=== PATIENT | male | born 1985 | race Caucasian/White ===

== ENCOUNTER 2016-05-30 19:07 | Emergency (ER) | payer OTHER ==
[~2016-05-30] VITALS: Ht 177.8 cm; Wt 74.8 kg
[2016-05-30] MEDS ORDERED: AMBI10TA PO (19:26)
[2016-05-30] MEDS ORDERED: MINO0.1C PO (19:26)
[2016-05-30] MEDS ORDERED: LEXA1TAB2 PO (19:26)
[2016-05-30] MEDS ORDERED: VITA100037 PO (19:26)
[2016-05-30] MEDS: KETOROLAC 30 MG/ML VIAL (J1885) IM ONE (21:30)
[2016-05-30] MEDS ORDERED: DICL75TA PO (22:08)
[2016-05-30] MEDS ORDERED: CYCL10TA PO (22:08)
[2016-05-30 22:12] VITALS: BP 116/65
== END 2016-05-30 22:22 | disposition home or self-care (01) ==
LOC: M ED 19:58
DX: S13.4XXA Sprain of ligaments of cervical spine, initial encounter (principal); X58.XXXA Exposure to other specified factors, initial encounter; Y92.89 Other specified places as the place of occurrence of the external cause; Y93.89 Activity, other specified; Y99.8 Other external cause status; F17.210 Nicotine dependence, cigarettes, uncomplicated; Z79.899 Other long term (current) drug therapy

== ENCOUNTER → 2016-06-01 | Outpatient (CLI) | payer OTHER ==
[~2016-06-01] MED LIST: AMBI10TA PO; CYCL10TA PO; DICL75TA PO; LEXA1TAB2 PO; MINO0.1C PO; VITA100037 PO
--- NOTE | 2016-06-01 17:21 | REP ---
Clinical: Cervicalgia. Comparison: 08/28/2015. Technique: AP, swimmers, open mouth and lateral views of the cervical spine. Findings: Straightening of normal lordosis is stable. Vertebral bodies and disc spaces are intact and essentially normal for age. No acute fracture / compression injury or subluxation. Spinous processes are intact. Open mouth view demonstrates normal C1-C2 articulation and odontoid process. Impression: Stable cervical spine series compared to 2016. Signed by Jesus Espitia MD 06/01/2016 05:13 P
== END ==
LOC: M RAD 16:37
PROVIDERS: ATTEND Physician Assistant Medical
DX: M54.2 Cervicalgia (principal)

== ENCOUNTER 2017-03-03 22:59 | Emergency (ER) | payer OTHER ==
[~2017-03-03] VITALS: Ht 177.8 cm; Wt 74.5 kg
[~2017-03-03 22:59] MED LIST changes: -VITA100037 PO; +VITA100067 PO
[2017-03-03] MEDS ORDERED: MELO7.5T7 PO (23:18)
[2017-03-03] MEDS ORDERED: VARE1TA PO (23:18)
[2017-03-03] MEDS ORDERED: HYDR50TA70 PO (23:18)
[2017-03-03] MEDS ORDERED: diphenhydrAMINE INJ 50MG/ML VIAL (J1200) IV STA (23:31)
[2017-03-03] MEDS ORDERED: METOCLOPRAMIDE INJ 10MG/2ML VIAL (J2765) IV ONE (23:45)
[2017-03-03] MEDS ORDERED: NS 1,000 ML IV ONE (23:45)
[2017-03-03] MEDS ORDERED: KETOROLAC 30 MG/ML VIAL (J1885) IV ONE (23:45)
[2017-03-04 00:23] VITALS: BP 123/76
== END 2017-03-04 00:36 | disposition home or self-care (01) ==
LOC: M ED 22:59
DX: G44.209 Tension-type headache, unspecified, not intractable (principal); Z72.0 Tobacco use
CPT/HCPCS: 96361; 96374; 96375; 99284; J1200; J1885; J2765

== ENCOUNTER → 2017-03-21 | Outpatient (CLI) | payer OTHER ==
[2017-03-21 20:44] LABS: HEMATOCRIT 44.3 % (42.0-52.0); HEMOGLOBIN 15.1 g/dl (14.0-18.0); MEAN CORPUSCULAR HEMOGLOBIN 28.9 pg (27.0-33.0); MEAN CORPUSCULAR HGB CONC 34.1 g/dl (32.0-36.5); MEAN CORPUSCULAR VOLUME 84.7 fl (80.0-96.0); PLATELET COUNT, AUTOMATED 309 10^3/uL (150-450); RED BLOOD COUNT 5.23 10^6/uL (4.30-6.10); RED CELL DISTRIBUTION WIDTH 12.6 % (11.5-14.5); WHITE BLOOD COUNT 10.4 10^3/uL (4.0-10.0)
[2017-03-21 20:58] LABS: ALBUMIN/GLOBULIN RATIO 1.14 (1.00-1.93); ALKALINE PHOSPHATASE 90 U/L (45-117); ALT/SGPT 53 U/L (12-78); ANION GAP 6 MEQ/L (8-16); AST/SGOT 29 U/L (7-37); BILIRUBIN,TOTAL 0.3 MG/DL (0.2-1.0); BLOOD UREA NITROGEN 8 MG/DL (7-18); CALCIUM LEVEL 9.2 MG/DL (8.5-10.1); CARBON DIOXIDE LEVEL 32 MEQ/L (21-32); CHLORIDE LEVEL 101 MEQ/L (98-107); CREATININE FOR GFR 0.77 MG/DL (0.70-1.30); FREE THYROXINE INDEX 3.6 % (1.4-3.8); GLOMERULAR FILTRATION RATE > 60.0 (>60); GLUCOSE, FASTING 78 MG/DL (70-105); POTASSIUM SERUM 4.9 MEQ/L (3.5-5.1); SODIUM LEVEL 139 MEQ/L (136-145); T UPTAKE 34 % (33-40); THYROID STIMULATING HORMONE 0.801 uIU/ML (0.358-3.740); THYROXINE (T4) 10.7 UG/DL (4.5-12.0); TOTAL PROTEIN 7.5 GM/DL (6.4-8.2)
[2017-03-21 21:03] LABS: TOTAL 25(OH) VITAMIN D 45.2 NG/ML (30.0-100.0)
== END ==
LOC: M LAB 17:47
DX: F33.9 Major depressive disorder, recurrent, unspecified (principal)
CPT/HCPCS: 84443

== ENCOUNTER 2017-12-30 13:23 | Emergency (ER) | payer OTHER | END 2017-12-30 15:30 | disposition home or self-care (01) | LOC: M ED 13:23 | DX: R59.1 Generalized enlarged lymph nodes (principal); K08.89 Other specified disorders of teeth and supporting structures; K02.9 Dental caries, unspecified; Z79.899 Other long term (current) drug therapy | CPT/HCPCS: 99283 ==

== ENCOUNTER → 2018-01-10 | Outpatient (CLI) | payer OTHER | LOC: M LAB 15:15 | DX: M25.512 Pain in left shoulder (principal) | CPT/HCPCS: 73010 ==

== ENCOUNTER 2019-08-09 20:17 | Emergency (ER) | payer OTHER ==
[~2019-08-09] VITALS: Ht 177.8 cm; Wt 71.7 kg
[~2019-08-09 20:17] MED LIST changes: +AMOX-CLAV; +CYCL-707 PO; -CYCL10TA PO; +HYDR50TA70 PO; +IBUP80TA; +MELO7.5T7 PO; +ULTR50TA8 PO; +VARE1TA PO
[2019-08-09] MEDS ORDERED: ACET-683 PO (20:22)
[2019-08-09] MEDS ORDERED: NS 1,000 ML IV ONE (21:30)
[2019-08-09] MEDS ORDERED: KETOROLAC 30 MG/ML 1ML VIAL IV ONE (21:30)
[2019-08-09] MEDS ORDERED: METHOCARBAMOL 1,000 MG/10 ML VIAL (J2800) IV ONE (21:30)
[2019-08-09 21:39] LABS: BASO # 0.1 10^3/uL (0.0-0.2); BASO % 0.3 % (0.0-1.0); EOS # 0.2 10^3/uL (0.0-0.5); EOS % 0.9 % (0.0-3.0); HEMATOCRIT 48.8 % (42.0-52.0); HEMOGLOBIN 16.6 g/dl (13.5-17.5); LYMPH # 2.6 10^3/uL (1.5-5.0); LYMPH % 12.1 % (24.0-44.0); MEAN CORPUSCULAR HEMOGLOBIN 28.5 pg (27.0-33.0); MEAN CORPUSCULAR VOLUME 83.7 fl (80.0-96.0); MONO # 1.2 10^3/uL (0.0-0.8); MONO % 5.6 % (0.0-5.0); NEUTROPHILS # 17.6 10^3/uL (1.5-8.5); NEUTROPHILS % 80.6 % (36.0-66.0); PLATELET COUNT, AUTOMATED 330 10^3/uL (150-450); RED BLOOD COUNT 5.83 10^6/uL (4.30-6.10); WHITE BLOOD COUNT 21.8 10^3/uL (4.0-10.0)
[2019-08-09 21:41] LABS: APPEARANCE, URINE CLEAR (CLEAR); BACTERIA, URINE AUTO NEGATIVE (NEGATIVE); BILIRUBIN, URINE AUTO NEGATIVE (NEGATIVE); BLOOD, URINE BLOOD NEGATIVE (NEGATIVE); COLOR, URINE STRAW (YELLOW); GLUCOSE, URINE (UA) AUTO NEGATIVE (NEGATIVE); KETONE, URINE AUTO NEGATIVE (NEGATIVE); LEUKOCYTE ESTERASE, URINE AUTO NEGATIVE (NEGATIVE); NITRITE, URINE AUTO NEGATIVE (NEGATIVE); PROTEIN, URINE AUTO NEGATIVE (NEGATIVE); RBC, URINE AUTO 0 /HPF (0-3); SPECIFIC GRAVITY URINE AUTO 1.002 (1.002-1.035); SQUAMOUS EPITHELIAL CELL UR AU 0 /HPF (0-6); UROBILINOGEN, URINE AUTO 0.2 mg/dL (0.0-2.0); WBC, URINE AUTO 1 /HPF (0-3)
[2019-08-09] MEDS ORDERED: ISOVUE-370 76% 100ML VIAL As Ordered ONE (21:53)
[2019-08-09 22:07] LABS: ALT/SGPT 66 U/L (12-78); BILIRUBIN,DIRECT < 0.1 MG/DL (0.0-0.2); BILIRUBIN,TOTAL 0.4 MG/DL (0.2-1.0); LIPASE 78 U/L (73-393); TOTAL PROTEIN 7.7 GM/DL (6.4-8.2)
--- NOTE | 2019-08-09 22:13 | REPVR ---
PROCEDURE INFORMATION: Exam: CT Abdomen And Pelvis With Contrast Exam date and time: 08/09/2019 10:01 PM Age: 33 years old Clinical indication: Abdominal pain; Generalized; Additional info: Abd tender, elev wbc TECHNIQUE: Imaging protocol: Computed tomography of the abdomen and pelvis with intravenous contrast. Radiation optimization: All CT scans at this facility use at least one of these dose optimization techniques: automated exposure control; mA and/or kV adjustment per patient size (includes targeted exams where dose is matched to clinical indication); or iterative reconstruction. Contrast material: ISOVUE 370; Contrast volume: 100 ml; Contrast route: IV; COMPARISON: CT ABD PELVIS WITH CONTRAST 06/01/2015 12:59 PM FINDINGS: Liver: Normal. No mass. Gallbladder and bile ducts: Normal. No calcified stones. No ductal dilation. Pancreas: Normal. No ductal dilation. Spleen: Normal. No splenomegaly. Adrenals: Normal. No mass. Kidneys and ureters: Normal. No hydronephrosis. Stomach and bowel: Diverticulosis without diverticulitis. Appendix: Normal appendix. Intraperitoneal space: Unremarkable. No free air. No significant fluid collection. Vasculature: Unremarkable. No abdominal aortic aneurysm. Lymph nodes: Unremarkable. No enlarged lymph nodes. Bladder: Unremarkable as visualized. Reproductive: Unremarkable as visualized. Bones/joints: Unremarkable. No acute fracture. Soft tissues: Small fat containing umbilical hernia. IMPRESSION: No acute abnormality. Electronically signed by: Leandro Ponce On 08/09/2019 22:13:18 PM
[2019-08-09] MEDS ORDERED: ROBA750T4 PO (22:41)
[2019-08-09] MEDS ORDERED: ASPE4PAD TOP (22:41)
[2019-08-09] MEDS ORDERED: NAPR-837 PO (22:41)
[2019-08-09 23:01] VITALS: BP 114/63
== END 2019-08-09 23:02 | disposition home or self-care (01) ==
LOC: M ED 20:17
DX: M54.5 Low back pain (principal); R10.84 Generalized abdominal pain; D72.829 Elevated white blood cell count, unspecified; Z79.899 Other long term (current) drug therapy; Z88.5 Allergy status to narcotic agent; F17.210 Nicotine dependence, cigarettes, uncomplicated
CPT/HCPCS: 74177; 80047; 80076; 81001; 83690; 85025; 87040; 96361; 96374; 96375; 99284; J1885; J2800; Q9967

== ENCOUNTER 2020-02-17 14:24 | Emergency (ER) | payer OTHER ==
[~2020-02-17] VITALS: Ht 177.8 cm; Wt 71.8 kg
[~2020-02-17 14:24] MED LIST changes: +ACET-683 PO; +ASPE4PAD TOP; +NAPR-837 PO; +ROBA750T4 PO
[2020-02-17] MEDS ORDERED: LUNE3TAB36 PO (14:37)
[2020-02-17] MEDS ORDERED: ZOLO25TA PO (14:37)
[2020-02-17] MEDS ORDERED: PANTOPRAZOLE 40MG VIAL (C9113 PER 1) IV ONE (16:00)
[2020-02-17] MEDS ORDERED: NS 1,000 ML IV ONE (16:00)
[2020-02-17 16:23] LABS: BASO % 0.4 % (0.0-1.0); EOS # 0.2 10^3/uL (0.0-0.5); EOS % 1.9 % (0.0-3.0); HEMATOCRIT 48.2 % (42.0-52.0); HEMOGLOBIN 16.2 g/dl (13.5-17.5); LYMPH # 3.3 10^3/uL (1.5-5.0); LYMPH % 33.7 % (24.0-44.0); MEAN CORPUSCULAR HEMOGLOBIN 29.2 pg (27.0-33.0); MEAN CORPUSCULAR HGB CONC 33.6 g/dl (32.0-36.5); MONO # 0.5 10^3/uL (0.0-0.8); MONO % 5.3 % (0.0-5.0); NEUTROPHILS # 5.7 10^3/uL (1.5-8.5); NEUTROPHILS % 58.4 % (36.0-66.0); PLATELET COUNT, AUTOMATED 335 10^3/uL (150-450); RED BLOOD COUNT 5.54 10^6/uL (4.30-6.10); WHITE BLOOD COUNT 9.8 10^3/uL (4.0-10.0)
[2020-02-17 16:51] LABS: ALBUMIN 3.9 GM/DL (3.2-5.2); ALT/SGPT 46 U/L (12-78); BILIRUBIN,DIRECT 0.1 MG/DL (0.0-0.2); BILIRUBIN,TOTAL 0.3 MG/DL (0.2-1.0); BLOOD UREA NITROGEN 7 MG/DL (7-18); CALCIUM LEVEL 9.7 MG/DL (8.5-10.1); CARBON DIOXIDE LEVEL 31 MEQ/L (21-32); CHLORIDE LEVEL 106 MEQ/L (98-107); CREATININE FOR GFR 0.84 MG/DL (0.70-1.30); GLOMERULAR FILTRATION RATE > 60.0 (>60); GLUCOSE, FASTING 83 MG/DL (70-100); LIPASE 95 U/L (73-393); POTASSIUM SERUM 4.4 MEQ/L (3.5-5.1); SODIUM LEVEL 139 MEQ/L (136-145); TOTAL PROTEIN 7.4 GM/DL (6.4-8.2)
[2020-02-17] MEDS ORDERED: ISOVUE-370 76% 100ML VIAL As Ordered ONE (17:04)
--- NOTE | 2020-02-17 17:40 | REPVR ---
PROCEDURE INFORMATION: Exam: CT Abdomen And Pelvis With Contrast Exam date and time: 02/17/2020 5:24 PM Age: 34 years old Clinical indication: Abdominal pain; Generalized; Additional info: Sudden onset severe abd pain R/O infectious process TECHNIQUE: Imaging protocol: Computed tomography of the abdomen and pelvis with intravenous contrast. Radiation optimization: All CT scans at this facility use at least one of these dose optimization techniques: automated exposure control; mA and/or kV adjustment per patient size (includes targeted exams where dose is matched to clinical indication); or iterative reconstruction. Contrast material: ISOVUE 370; Contrast volume: 100 ml; Contrast route: INTRAVENOUS (IV); COMPARISON: CT ABD/PEL W/IV CONTRAST ONLY 08/09/2019 9:56 PM FINDINGS: Liver: There is a diffuse decrease in hepatic parenchymal density, consistent with steatosis. Gallbladder and bile ducts: Normal. No calcified stones. No ductal dilation. Pancreas: Normal. No ductal dilation. Spleen: Normal. No splenomegaly. Adrenal glands: Normal. No mass. Kidneys and ureters: Normal. No hydronephrosis. Stomach and bowel: Mild diverticulosis is present in the distal colon. No diverticulitis. Of note there is wall thickening in the mid sigmoid colon measuring up to 1.2 cm maximally, a finding which appears more pronounced than demonstrated previously. Clinical correlation to exclude a neoplasm suggested. Appendix: No evidence of appendicitis. Intraperitoneal space: Unremarkable. No free air. No significant fluid collection. Vasculature: Unremarkable. No abdominal aortic aneurysm. Lymph nodes: Unremarkable. No enlarged lymph nodes. Urinary bladder: Unremarkable as visualized. Reproductive: Unremarkable as visualized. Bones/joints: Unremarkable. No acute fracture. Soft tissues: Unremarkable. IMPRESSION: 1. There is a diffuse decrease in hepatic parenchymal density, consistent with steatosis. 2. Mild diverticulosis is present in the distal colon. No diverticulitis. Of note there is wall thickening in the mid sigmoid colon measuring up to 1.2 cm maximally, a finding which appears more pronounced than demonstrated previously. Clinical correlation to exclude a neoplasm suggested. Electronically signed by: John Nolan On 02/17/2020 17:40:16 PM
[2020-02-17 18:18] VITALS: BP 141/62
--- NOTE | 2020-02-18 00:45 | ECGEPIP ---
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
== END 2020-02-17 18:15 | disposition home or self-care (01) ==
LOC: M ED 14:24
DX: R10.9 Unspecified abdominal pain (principal); F17.200 Nicotine dependence, unspecified, uncomplicated; Z88.5 Allergy status to narcotic agent
CPT/HCPCS: 74177; 80048; 80076; 81001; 83690; 85025; 93005; 96361; 96374; 99284; C9113; Q9967

== ENCOUNTER 2020-05-18 16:20 | Emergency (ER) | payer OTHER ==
[~2020-05-18] VITALS: Ht 177.8 cm; Wt 71.3 kg
[~2020-05-18 16:20] MED LIST changes: +LUNE3TAB36 PO; +ZOLO25TA PO
[2020-05-18] MEDS ORDERED: MINO100C4 (16:39)
[2020-05-18] MEDS ORDERED: CLIN1LOT (16:39)
[2020-05-18] MEDS ORDERED: KETOROLAC 30 MG/ML 1ML VIAL IV ONE (17:05)
[2020-05-18] MEDS ORDERED: NS 1,000 ML IV ONE (17:05)
[2020-05-18 18:25] LABS: BASO % 0.3 % (0.0-1.0); EOS # 0.1 10^3/uL (0.0-0.5); EOS % 0.9 % (0.0-3.0); HEMATOCRIT 48.6 % (42.0-52.0); HEMOGLOBIN 16.6 g/dl (13.5-17.5); LYMPH % 25.6 % (24.0-44.0); MEAN CORPUSCULAR HEMOGLOBIN 29.2 pg (27.0-33.0); MEAN CORPUSCULAR HGB CONC 34.2 g/dl (32.0-36.5); MEAN CORPUSCULAR VOLUME 85.4 fl (80.0-96.0); MONO # 0.7 10^3/uL (0.0-0.8); MONO % 5.5 % (2.0-8.0); NEUTROPHILS # 7.9 10^3/uL (1.5-8.5); NEUTROPHILS % 67.4 % (36.0-66.0); PLATELET COUNT, AUTOMATED 318 10^3/uL (150-450); RED BLOOD COUNT 5.69 10^6/uL (4.30-6.10); WHITE BLOOD COUNT 11.8 10^3/uL (4.0-10.0)
--- NOTE | 2020-05-18 18:37 | REPVR ---
PROCEDURE INFORMATION: Exam: US Abdomen, Limited; Right Upper Quadrant Exam date and time: 05/18/2020 5:54 PM Age: 34 years old Clinical indication: Abdominal pain; Additional info: Ruq pain TECHNIQUE: Imaging protocol: US abdomen. Real time ultrasound with image documentation. Limited exam focused on the right upper quadrant. COMPARISON: CT ABD/PEL W/IV CONTRAST ONLY 02/17/2020 5:19 PM FINDINGS: Liver: Normal. No masses. Normal vascular flow in the main portal vein towards the liver. Gallbladder: Normal. No gallstones. There is no gallbladder wall thickening. Common bile duct: Normal. No stones. No dilation. The common bile duct measures 2.4 mm in diameter. Pancreas: Pancreas is not clearly visible secondary to overlying bowel gas. Right kidney: Normal right kidney measuring 9.6 x 4.6 x 4.2 cm. . No mass. No hydronephrosis. IMPRESSION: No acute findings. Normal right upper quadrant abdomen. Electronically signed by: Shad Wlaker On 05/18/2020 18:37:58 PM
--- NOTE | 2020-05-18 18:43 | REP ---
INDICATION: chest pain COMPARISON: 12/13/2015 TECHNIQUE: Portable AP view of the chest FINDINGS: The mediastinum and cardiac silhouette are stable and within normal limits for portable technique. The lung obrien are clear without acute consolidation, effusion, or pneumothorax. Skeletal structures are intact. IMPRESSION: No acute cardiopulmonary process appreciated. <Electronically signed by Jesus Espitia > 05/18/20 [id number]
[2020-05-18 18:50] LABS: ALBUMIN 4.2 GM/DL (3.2-5.2); ALT/SGPT 32 U/L (12-78); BILIRUBIN,DIRECT 0.1 MG/DL (0.0-0.2); BILIRUBIN,TOTAL 0.5 MG/DL (0.2-1.0); CK-MB VALUE MASS < 1.0 NG/ML (<3.6); CPK CREATINE PHOSPHOKINASE 85 U/L (39-308); LIPASE 230 U/L (73-393); MB/CK RELATIVE INDEX 1.18 (< OR =4); TOTAL PROTEIN 7.7 GM/DL (6.4-8.2); TROPONIN I < 0.02 NG/ML (< 0.10)
[2020-05-18 19:02] LABS: RSV AMPLIFICATION NEGATIVE (NEGATIVE)
[2020-05-18 19:18] VITALS: BP 118/67
--- NOTE | 2020-05-19 07:08 | ECGEPIP ---
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
== END 2020-05-18 19:26 | disposition home or self-care (01) ==
LOC: M ED 16:20
DX: J00 Acute nasopharyngitis [common cold] (principal); M94.0 Chondrocostal junction syndrome [Tietze]; F17.200 Nicotine dependence, unspecified, uncomplicated; Z79.899 Other long term (current) drug therapy; Z88.5 Allergy status to narcotic agent
CPT/HCPCS: 71045; 76705; 80047; 80076; 81001; 82550; 82553; 83690; 85025; 87631; 93005; 96361; 96374; 99284; J1885

== ENCOUNTER 2021-08-19 19:58 | Emergency (ER) | payer OTHER ==
[~2021-08-19] VITALS: Ht 177.8 cm; Wt 72.7 kg
[~2021-08-19 19:58] MED LIST changes: +CLIN1LOT; +MINO100C4
[2021-08-19 19:59] VITALS: BP 148/71
== END 2021-08-19 21:14 | disposition left against medical advice (07) ==
LOC: M ED 19:58
DX: Z53.21 Procedure and treatment not carried out due to patient leaving prior to being seen by health care provider (principal)

== ENCOUNTER 2024-12-25 18:04 | Emergency (ER) | payer OTHER ==
[~2024-12-25] VITALS: Ht 177.8 cm; Wt 71.2 kg
[2024-12-25 20:15] VITALS: BP 123/69; TEMP 102.2; O2SAT 98
[2024-12-25 20:30] LABS: BASO # 0.1 10^3/uL (0.0-0.2); BASO % 0.3 % (0.0-1.0); EOS # 0.0 10^3/uL (0.0-0.5); EOS % 0.0 % (0.0-3.0); LYMPH # 0.9 10^3/uL (1.5-5.0); LYMPH % 5.4 % (24.0-44.0); MONO # 0.7 10^3/uL (0.0-0.8); MONO % 4.5 % (2.0-8.0); NEUTROPHILS # 14.7 10^3/uL (1.5-8.5); NEUTROPHILS % 89.4 % (36.0-66.0); PLATELET COUNT, AUTOMATED 275 10^3/uL (150-450)
[2024-12-25 21:02] LABS: ALT/SGPT 23 U/L (7.0-40); AST/SGOT 20 U/L (<34); CALCIUM LEVEL 9.2 MG/DL (8.5-10.1); CARBON DIOXIDE LEVEL 26 MMOL/L (20-31); CHLORIDE LEVEL 104 MMOL/L (98-107); CREATININE FOR GFR 0.77 MG/DL (0.70-1.30); GLOMERULAR FILTRATION RATE > 90.0 (>60); POTASSIUM SERUM 4.0 MMOL/L (3.5-5.1); SODIUM LEVEL 140 MMOL/L (136-145)
== END 2024-12-25 21:21 | disposition left against medical advice (07) ==
LOC: M ED 18:04
DX: Z53.21 Procedure and treatment not carried out due to patient leaving prior to being seen by health care provider (principal)

== ENCOUNTER → 2024-12-25 | Outpatient (REF) | payer OTHER ==
[~2024-12-25] MED LIST changes: -AMBI10TA PO; -LUNE3TAB36 PO; +LUNE3TAB50 PO; +ZOLP-533 PO
[2024-12-25 22:19] LABS: Trichomonas vaginalis (AMP) NOT DETECTED (NEGATIVE)
[2024-12-25 22:43] LABS: GC DNA AMPLIFICATION NEGATIVE (NEGATIVE)
== END ==
LOC: M LAB REF 19:21
PROVIDERS: ATTEND Physician Assistant
DX: R10.A2 Flank pain, left side (principal)